=== PATIENT | female | born 1960 | race Caucasian/White ===

== ENCOUNTER 2025-04-25 08:16 | Emergency (ER) | payer OTHER, SELFPAY ==
[2025-04-25 08:18] VITALS: BP 159/84
[2025-04-25 09:30] VITALS: BP 146/68
[2025-04-25 09:53] VITALS: BMI 40.6
[2025-04-25 10:00] VITALS: BP 162/83
[2025-04-25 10:30] LABS: Hematocrit 44.2 % (37.0-47.0); Hemoglobin 14.8 g/dL (12.0-16.0); Mean Corp Hgb Conc. 33.5 g/dL (33.0-37.0); Mean Corpuscular Volume 91.9 fL (81.0-99.0); Nucleated Red Blood Cells % 0 %; Platelet Count 305 10^3/uL (130-400); Red Cell Dist. Width 13.1 % (11.5-14.5)
[2025-04-25 10:56] LABS: ALT (SGPT) 23 U/L (0-35); AST (SGOT) 26 U/L (14-36); Albumin 4.6 g/dl (3.5-5.0); Alkaline Phosphatase 71 U/L (38-126); Blood Urea Nitrogen 19 mg/dl (7-17); Calcium 10.0 mg/dl (8.4-10.2); Carbon Dioxide 24 mmol/L (22-30); Chloride 107 mmol/L (98-107); Estimated Creatinine Clearance 87 ml/min; Glucose 150 mg/dl (70-99); Lipase 109 U/L (23-300); Potassium 4.9 mmol/L (3.5-5.1); Sodium 140 mmol/L (135-145); Total Protein 8.1 g/dl (6.3-8.2); eGFR > 60.00
[2025-04-25 11:00] VITALS: BP 124/71
[2025-04-25 11:06] LABS: Troponin I < 0.012 ng/ml
[2025-04-25 12:13] VITALS: BP 142/67
--- NOTE | 2025-04-25 12:53 | ED.GENMED ---
History of Present Illness
General
Chief Complaint: Blood Pressure Problem
Source: patient
Exam Limitations: none
Time Seen by Provider: 04/25/25 09:37
History of Present Illness
History of Present Illness:
65-year-old female presents complaining of multiple issues one of them being elevated blood pressure readings over the past several days as well as epigastric pain. The pain she describes as sharp in nature that radiates straight to through to the
back. She states has been under significant amount of stress lately. She was seen at [facility] in the recent past for similar issues. She is on blood pressure medication. Her blood pressure has been as high as 200/100 at home. She also
notes subtle lower chest pain. This pain does radiate to the back. She feels like a tingling sensation in her back as well. No shortness of breath. No increased pain with breathing or eating. No other this time
Phy Exam
Physical Exam
Physical Exam:
General: Well-appearing female no acute respiratory distress
HEENT normocephalic atraumatic neck is supple
Heart: Regular rate and rhythm
Lungs: Clear no wheeze
Abdomen is soft tender to the epigastric region no guarding rebound normal bowel sounds
Extremities: No cyanosis
Course
Orders/Labs/Results
Orders:
Orders
04/25/25 08:23
Electrocardiogram (*1) Urgent
Reason for Study: Hypertension, Benign
EKG- Treatment ONCE
04/25/25 09:57
Ct Chest/Abd/Pel Angio W/Wo Iv Urgent
Reason For Exam: chest and abdominal pain, elevated BP
04/25/25 10:16
Complete Blood Count/With Diff Urgent
Comprehensive Metabolic Panel Urgent
Lipase Urgent
TSH Reflex To Free T4 Urgent
Comment: ADD ON
Troponin I Urgent
04/25/25 10:42
Add On- LAB Urgent
Tests Added?: tsh reflex to free t4
Abnormal Lab Results
04/25/25
10:16
WBC 12.3 H 10^3/uL
(4.8-10.8)
Abs Immat Gran (auto) 0.1 H 10^3/uL
(0-0.05)
Absolute Neuts (auto) 7.9 H 10^3/uL
(1.4-6.5)
Absolute Monos (auto) 0.7 H 10^3/uL
(0.1-0.6)
BUN 19 H mg/dl
(7-17)
Glucose 150 H mg/dl
(70-99)
04/25/25 10:16
04/25/25 10:16
Vital Signs
Initial and Last Documented VS:
Initial Vital Signs
Temp Pulse Resp BP Pulse Ox
98.4 F 77 18 159/84 97
04/25/25 08:18 04/25/25 08:18 04/25/25 08:18 04/25/25 08:18 04/25/25 08:18
Last Documented Vital Signs
Temp Pulse Resp BP Pulse Ox
98.4 F 69 15 142/67 96
04/25/25 08:18 04/25/25 12:45 04/25/25 12:45 04/25/25 12:13 04/25/25 12:45
MDM/Problems Addressed
Differential Diagnosis Includes:
Patient with epigastric pain radiating to the back with elevated blood pressure and fluttering sensation. She is currently wearing a heart monitor that she is due to hand in tomorrow. EKG here shows sinus rhythm. She has decent blood pressure
readings here but she is tender on the abdomen exam. Differential could include gastritis versus ulcer versus pancreatitis dissection given the elevated blood pressure and back pain. CT angio of the chest abdomen and pelvis was performed which was
negative for acute finding. Cardiac workup otherwise negative. I suspect gastritis. Recommended pantoprazole and GI follow-up. Stable for discharge
*Pulse Oximetry
SaO2: 96
Oxygen Mode of Delivery: Room air
Patient hypoxic: no
*Critical Care Note
Total Time (30-74mins, 75-104mins- exclusive of procedures): Not Applicable
ED Attending Note
-
Portions of this chart may have been created with voice recognition software.� Occasional wrong word or��sound alike� substitutions may have occurred due to the inherent limitations of voice recognition software.
Discharge Plan
Departure
Patient Disposition: Home (Routine Discharge)
Date of Disposition: 04/25/25
Time of Disposition: 12:56
Patient with high blood pressure during this ER visit?: No
Discharge Problem:
Abdominal pain
Instructions: Abdominal pain in adults - Discharge instructions
Prescriptions:
New
pantoprazole 40 mg tablet,delayed release (DR/EC)
40 mg PO DAILY Qty: 14 0RF
Referrals:
Kaylin Cooper MD [Active, Gastroenterology]
Medina Babb DO [Family Provider, Family Practice]
Activity Restrictions/Additional Instructions:
Eat a bland diet. Continue current blood pressure medication regimen. Return if worse. Use pantoprazole as directed. Follow-up with GI
Interventions
Interventions:
*Risk Screen - Suicide Last Done: 04/25/25 08:18
*General Assessment Last Done: 04/25/25 08:18
*Neglect/Abuse Screening Last Done: 04/25/25 08:18
*ED- Fall Risk Assessment Last Done: 04/25/25 09:53
*ED COVID-19 Vaccine History Last Done: 04/25/25 09:53
ED- Cardiac Assessment Last Done: 04/25/25 09:54
ED- Neurological Assessment Last Done: 04/25/25 09:54
ED- Pulmonary Assessment Last Done: 04/25/25 09:54
Discharge Date and Time
Print Language: [place]
== END 2025-04-25 13:04 | disposition home or self-care (01) ==
LOC: EMR 08:16
PROVIDERS: Physician Assistant; EMERGENCY PHYSICIAN Student in an Organized Health Care Education/Training Program; FAMILY PHYSICIAN Preventive Medicine Obesity Medicine
DX: R10.13 Epigastric pain (principal); R07.89 Other chest pain; R03.0 Elevated blood-pressure reading, without diagnosis of hypertension
CPT/HCPCS: 99284; 71275; 74174; 80053; 83690; 84443; 84484; 85025; 93005; Q9967